=== PATIENT | female | born 1970 | race Caucasian/White ===

== ENCOUNTER → 2016-08-25 | Outpatient (CLI) | payer BC ==
[~2016-08-25] MED LIST: B&C/1TAB2 PO; CHOL100084 PO; FERR325C PO; SULF1TAB38 PO
--- NOTE | 2016-08-25 14:47 | Diagnostic Imaging Report ---
INDICATION: Heavy menstrual cycles. TECHNIQUE: Multiple real time arzola scale sonographic images were obtained of the pelvis transabdominally and endovaginally. CORRELATION STUDY: None. FINDINGS: UTERUS/ENDOMETRIUM: Uterus measures 9.3 x 6.1 x 4.8 cm. The uterus has an unremarkable appearance. The endometrium is normal in thickness measuring 7 mm. Probable cervical nabothian cyst. RIGHT OVARY: 2.3 x 3.0 x 2.3 cm. LEFT OVARY: 3.4 x 2.7 x 2.6 cm. Ovaries contain multiple small follicles and cysts. Some slightly complex with minimal septations. Largest on the left at 15 mm. Definitive concerning mass lesion does not appear to be present. Vascular flow is demonstrated to both ovaries. Small amount of free fluid in the left adnexa. IMPRESSION: 1. Multiple small cysts and/or follicles of both ovaries. Some slightly complex with septations. These along with a small amount of free pelvic fluid may very likely be physiologic. Dictated by: Dictated on workstation # [id number]
== END ==
LOC: RAD 13:26
PROVIDERS: ATTEND Obstetrics & Gynecology
DX: N92.0 Excessive and frequent menstruation with regular cycle (principal); N83.201 Unspecified ovarian cyst, right side; N83.202 Unspecified ovarian cyst, left side
CPT/HCPCS: 76830; 76856

== ENCOUNTER → 2022-11-25 | Outpatient (CLI) | payer BC ==
[~2022-11-25] MED LIST changes: +HOLD METFORMIN - RECEIVED CONTRAST 20 ML VIAL IV SCH; +IOHEXOL 350 MG/ML 100 ML (OMNIPAQUE 350) VIAL IV ONE; +NS 100 ML (IVPB) BAG IV ONE
--- NOTE | 2022-11-25 09:08 | Diagnostic Imaging Report ---
PROCEDURE: CT abdomen and pelvis with contrast. TECHNIQUE: Multiple contiguous axial images were obtained through the abdomen and pelvis after administration of intravenous contrast. Auto Exposure Controls were utilized during the CT exam to meet ALARA standards for radiation dose reduction. All CT scans use one or more of the following dose optimizing techniques: automated exposure control, MA and/or KvP adjustment based on patient size and exam type or iterative reconstruction. INDICATION: Frequent urination and urinary tract infections. No prior studies are available for comparison. The lung bases are clear. There are low-attenuation lesions within the left lobe of the liver, suggestive of cysts. The gallbladder is unremarkable. There is no biliary duct dilatation. The pancreas and spleen are unremarkable. No adrenal mass is detected. Kidneys are unremarkable. No definite calculi are seen. There is no hydronephrosis. Aorta is nonaneurysmal. The small and large bowel loops are normal caliber. There is no obstruction. There is moderate stool in the colon, correlate for constipation. Appendix is unremarkable. There is no ascites. No fluid collection is seen. The bladder is unremarkable. The uterus is somewhat enlarged and may contain fibroids. No other significant abnormality is detected. IMPRESSION: 1. Moderate stool, correlate for constipation. 2. Enlarged uterus, which may contain fibroids. Pelvic ultrasound may be useful for further evaluation. Dictated by: Dictated on workstation # [id number]
== END ==
LOC: RAD 07:10
PROVIDERS: ATTEND Family Medicine
DX: N85.2 Hypertrophy of uterus (principal); N30.01 Acute cystitis with hematuria
CPT/HCPCS: 74177